=== PATIENT | male | born 1945 | race Caucasian/White ===

== ENCOUNTER 2020-10-29 14:56 | Outpatient (REF) | payer MEDICARE, SELFPAY ==
--- NOTE | 2020-10-30 09:49 | XR_ITS ---
EXAMINATION: XR KNEE BILATERAL STANDING XR KNEE RIGHT XR KNEE LEFT CLINICAL INFORMATION: Right and left knee pain COMPARISON: None TECHNIQUE: AP standing view both knees Right knee, sunrise and lateral views Left knee, sunrise and lateral views FINDINGS: Left knee: Moderate loss of medial tibiofemoral joint space and osteophyte formation. Marginal osteophytes are present at the lateral tibiofemoral and patellofemoral compartments. Patella is properly located in the trochlear groove. There appears to be trace knee joint effusion. 0.6 cm ossific body of the posteromedial knee is likely within a Cleaning's cyst. Right knee: Mild narrowing of medial tibiofemoral joint space. Marginal osteophytes are present at the degenerated patellofemoral as well as medial and lateral tibiofemoral compartments. There is mild lateral patellar subluxation on the sunrise view, and mild narrowing of the lateral patellofemoral joint space. No joint effusion. A 0.9 cm wide smoothly marginated exostosis arises from the proximal, medial aspect of the tibial metadiaphysis. No suspicious bone lesion. 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 * Tricompartmental osteoarthritis of the left knee, as well, worst (moderate) at the medial tibiofemoral compartment. Small ossific body of the posteromedial left knee is likely within a Cleaning's cyst.
--- NOTE | 2020-10-30 09:49 | XR_ITS ---
EXAMINATION: XR KNEE BILATERAL STANDING XR KNEE RIGHT XR KNEE LEFT CLINICAL INFORMATION: Right and left knee pain COMPARISON: None TECHNIQUE: AP standing view both knees Right knee, sunrise and lateral views Left knee, sunrise and lateral views FINDINGS: Left knee: Moderate loss of medial tibiofemoral joint space and osteophyte formation. Marginal osteophytes are present at the lateral tibiofemoral and patellofemoral compartments. Patella is properly located in the trochlear groove. There appears to be trace knee joint effusion. 0.6 cm ossific body of the posteromedial knee is likely within a Cleaning's cyst. Right knee: Mild narrowing of medial tibiofemoral joint space. Marginal osteophytes are present at the degenerated patellofemoral as well as medial and lateral tibiofemoral compartments. There is mild lateral patellar subluxation on the sunrise view, and mild narrowing of the lateral patellofemoral joint space. No joint effusion. A 0.9 cm wide smoothly marginated exostosis arises from the proximal, medial aspect of the tibial metadiaphysis. No suspicious bone lesion. 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 * Tricompartmental osteoarthritis of the left knee, as well, worst (moderate) at the medial tibiofemoral compartment. Small ossific body of the posteromedial left knee is likely within a Cleaning's cyst.
--- NOTE | 2020-10-30 09:49 | XR_ITS ---
EXAMINATION: XR KNEE BILATERAL STANDING XR KNEE RIGHT XR KNEE LEFT CLINICAL INFORMATION: Right and left knee pain COMPARISON: None TECHNIQUE: AP standing view both knees Right knee, sunrise and lateral views Left knee, sunrise and lateral views FINDINGS: Left knee: Moderate loss of medial tibiofemoral joint space and osteophyte formation. Marginal osteophytes are present at the lateral tibiofemoral and patellofemoral compartments. Patella is properly located in the trochlear groove. There appears to be trace knee joint effusion. 0.6 cm ossific body of the posteromedial knee is likely within a Cleaning's cyst. Right knee: Mild narrowing of medial tibiofemoral joint space. Marginal osteophytes are present at the degenerated patellofemoral as well as medial and lateral tibiofemoral compartments. There is mild lateral patellar subluxation on the sunrise view, and mild narrowing of the lateral patellofemoral joint space. No joint effusion. A 0.9 cm wide smoothly marginated exostosis arises from the proximal, medial aspect of the tibial metadiaphysis. No suspicious bone lesion. 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 * Tricompartmental osteoarthritis of the left knee, as well, worst (moderate) at the medial tibiofemoral compartment. Small ossific body of the posteromedial left knee is likely within a Cleaning's cyst.
== END 2020-10-29 14:57 | disposition home or self-care (01) ==
LOC: HO.HOSX 14:56
PROVIDERS: Visit Provider Orthopaedic Surgery
DX: M17.0 Bilateral primary osteoarthritis of knee (principal)
CPT/HCPCS: 73560; 73565; 99202

== ENCOUNTER → 2020-10-30 09:48 | Outpatient (BNVA) | payer MEDICARE, OTHER, SELFPAY | PROVIDERS: PCP Nurse Practitioner Family; Visit Provider Orthopaedic Surgery | DX: M17.0 Bilateral primary osteoarthritis of knee (principal) | CPT/HCPCS: 99202 ==

== ENCOUNTER → 2020-11-12 13:10 | Outpatient (BNVA) | payer MEDICARE, SELFPAY | PROVIDERS: PCP Nurse Practitioner Family; Visit Provider Orthopaedic Surgery | DX: M17.0 Bilateral primary osteoarthritis of knee (principal) | CPT/HCPCS: 20610; J7321; Q3014 ==

== ENCOUNTER → 2020-11-19 08:54 | Outpatient (BNVA) | payer MEDICARE, SELFPAY | PROVIDERS: PCP Nurse Practitioner Family; Visit Provider Orthopaedic Surgery | DX: M17.0 Bilateral primary osteoarthritis of knee (principal) | CPT/HCPCS: 20610; J7321 ==

== ENCOUNTER → 2020-11-26 12:50 | Outpatient (BNVA) | payer MEDICARE, OTHER, SELFPAY | PROVIDERS: PCP Nurse Practitioner Family; Visit Provider Orthopaedic Surgery | DX: M17.0 Bilateral primary osteoarthritis of knee (principal) | CPT/HCPCS: 20610; 99212; J7321 ==

== ENCOUNTER 2023-03-15 12:59 | Outpatient (REF) | payer MEDICARE, SELFPAY ==
[2023-03-15 13:14] VITALS: BP 146/65; PULSE 74; RESP 16; TEMP 37; O2SAT 97; BMI 42.0
== END 2023-03-15 13:00 | disposition home or self-care (01) ==
LOC: HO.MS 12:59
PROVIDERS: PCP Nurse Practitioner Family; Visit Provider Ophthalmology
PROC: (CPT 66821; principal; 2023-03-15 14:40)
DX: H26.492 Other secondary cataract, left eye (principal)
CPT/HCPCS: 66821